=== PATIENT | male | born 1960 | race Two or more races ===

== ENCOUNTER 2020-09-22 10:23 | Inpatient (IN) | payer BC ==
[~2020-09-22] VITALS: Ht 177.8 cm; Wt 81.6 kg
[2020-09-22 10:35] VITALS: BP 127/72
--- NOTE | 2020-09-22 10:40 | NUR ---
ED Nurse Note: Patient was BIBA from urgent care due to dizziness and weakness. Went to urgent care for N&V for 1 week. COVID (-)test today. Per patient he has black stool for one week. Patient presented calm, AAO x4, VSS at this time.
[2020-09-22] MEDS ORDERED: Pantoprazole Inj IV ONE (10:45)
--- NOTE | 2020-09-22 10:45 | NUR ---
ED Nurse Note: patient presente with IV line on left AC 16ga, blood collected sent to lab
--- NOTE | 2020-09-22 11:38 | Emergency Room Report ---
History of Present Illness General Chief Complaint: Nausea, Vomiting, and Diarrhea Source: Patient, EMS Present Illness HPI 60-year-old male PMHx HTN and gastritis BIBA with generalized weakness. Admits to melanotic stools x10 days. Denies nausea, vomiting, hematochezia, hematuria, back pain, abdominal pain, syncope, chest pain, shortness of breath, hematemesis, or other symptoms. Denies history of previous blood transfusion. Denies extensive NSAID or alcohol use use. Patient had initially gone to urgent care for his symptoms and was swabbed for covid which came back negative. EMS stated that patient was initially hypotensive on scene and found to have positive orthostats were positive. Denies recent EGD or colonoscopy. He was given NS 400 cc bolus prior to ED arrival with resolution of hypotension and tachycardia. No LOC witnessed by EMS Patient was retching on arrival to ED. No witnessed hematemesis. The patient's symptoms were gradual onset, severity was moderate, duration since 10 days. Quality: Dark bloody stools Past medical history: Hypertension, Gastritis Past surgical history: Denies Smoking: Denies Alcohol use: Denies Drug use: Denies Review of systems: CONST: No fevers or chills, No night sweats PULMONARY: No productive cough, No shortness of breath CARDIAC: No chest pain, No palpitations GI: ++ vomiting, No diarrhea , ++ melena_negative_BRBPR : No dysuria, No hematuria, No discharge NEURO: No new_focal_weakness_or_numbness, No confusion, No vision changes 14 point Review of Systems is otherwise negative except per HPI Physical Exam: GENERAL: Awake_alert_ nontoxic, no acute distress Spo2 98% on RA -normal EYES: Extraocular muscles are intact. Conjunctivae clear. Lids without swelling. Pale appearing. ENT: External nose and ear normal_in_appearance. Oropharynx clear. Head_atraumatic, Moist_oral_mucosa NECK: No JVD. No meningismus. No thyromegaly. Supple. Trachea midline RESP: Normal respiratory effort. Symmetric rise. No stridor. Clear_to_auscultation_No_rales_No_wheezes CARDIAC: Tachycardic and regular rhytm. No_significant pedal edema. Pulses 2/4 bilateral UE and LE. ABDOMEN: Soft. Nondistended. Nontender_No_rebound_or_guarding. No pulsatile mass. MSK: Normal muscle tone, without rigidity. Extremities without asymmetric deformity or swelling. SKIN: Warm and dry. No visible cyanosis or pallor NEUROLOGIC: Alert, oriented x3. Motor_and_sensation_grossly_intact. No truncal ataxia. Gait_normal Psych: Normal mood and affect, normal judgment and insight - COORDINATION OF CARE Case was discussed with: Patient , Patient's Physician Any labs and imaging that were ordered were interpreted as part of the medical decision making: Medical Decision Making/Plan: Differential diagnosis includes upper GI bleed from bleeding peptic ulcer, bleeding duodenal ulcer, gastritis, esophageal varices, gastric varices, among others. Patient is pale appearing. Tachycardic but with stable BP. No palpable abdominal mass or peritonitis to suggest AAA. Pulses are equal and symmetric in the daryl ateral UE and LE, doubt Aortic dissection. Given the possibility of a bleeding peptic ulcer, Protonix IV was immediately started. Because of Hgb 5.5, the patient will immediately be transfused 2 units of PRBC, and admitted for further care and management. The patient does not require any emergent anticoagulation reversal at this time point, although it was considered. Patient is protecting his airway, no active vomiting, no need for NG tube or intubation at this time. Patient is capitated by his insurance to outside hospital. I spoke with Dr. Reyes who states that patient will be transferred to outside hospital that is contra cted the patient's insurance. The patient has been stabilized to the best of this emergency department's capabilities. Given the patient's medical needs, appropriate facilities for transfer were discussed and the decision has been made to transfer this patient to capitated facility. The receiving facility has the capacity and capabilities to provide care for the patient. I spoke with Dr Reyes who accepted the patient in transfer. The patient has been informed and updated of their current clinical status. The patient has given verbal consent for the transfer. The risks and benefits were explained and the patient verbalizes their understanding. Allergies: Coded Allergies: No Known Allergies (Unverified , 09/22/20) COVID-19 Screening Contact w/high risk pt: No Experienced COVID-19 symptoms?: No COVID-19 Testing performed AUTHORIZATION SPECIALIST: Yes COVID-19 Screening: Negative COVID-19 COVID-19 Testing Source: TODAY NEGATIVE BUFFER COPPER Nursing Documentation-PMH Past Medical History: No History, Except For Hx Hypertension: Yes Hx Gastrointestinal Problems: Yes - GASTRITIS Physical Exam Vital Signs Date Time Temp Pulse Resp B/P (MAP) Pulse Ox O2 Delivery O2 Flow Rate FiO2 09/22/20 10:24 98.1 90 18 109/64 (79) 98 Room Air Sp02 EP Interpretation: reviewed, normal Procedures Critical Care Time Critical Care Time Critical Care Statement Organ systems at risk include: cardiac / circulatory Critical care performed for 45 minutes. Time is exclusive of separately billable procedures. Time includes: direct patient care, continuous monitoring and multiple patient reassessment, coordination of patient care, review of patient's medical records, medical consultation, family consultation regarding treatment decisions and documentation of patient care. Blood transfusion was initiated in the emergency department for severe anemia Medical Decision Making Diagnostic Impression: Primary Impression: GI bleed Additional Impressions: Melena Anemia Symptomatic anemia History of hypertension EKG Diagnostic Results PA Scribe Text 12-lead EKG (interpreted by me) Time: 1038 Indication: Rhythm analysis Tracing visualized and Interpreted by me. Rhythm: Normal sinus rhythm Rate: 98 bpm QTc: 426 Morphology: No_significant_ST_elevations_or_depressions, No STEMI Impression: Normal_sinus_rhythm_without_significant_abnormality. LVH, nonspecific Rhythm Strip Diag. Results Rhythm Strip Time: 13:31 EP Interpretation: yes Rate: 100 Reevaluation Time: 13:32 Last Vital Signs Date Time Temp Pulse Resp B/P (MAP) Pulse Ox O2 Delivery O2 Flow Rate FiO2 09/22/20 10:35 98.1 100 18 127/72 98 Room Air Status: improved Disposition: ADMITTED INPATIENT - TRANSFER TO OUTSIDE HOSPITAL Admit Decision Time: 13:30 Condition: Stable Cari Kovacs D.O. Sep 22, 2020 11:38
[2020-09-22 11:42] LABS: HEMATOCRIT 17.1 % (42.0-52.0); MEAN CORPUSCULAR VOLUME 89 FL (80-99); PLATELET COUNT 278 K/UL (150-450); RED BLOOD COUNT 1.92 M/UL (4.70-6.10); RED CELL DISTRIBUTION WIDTH 15.1 % (11.6-14.8); WHITE BLOOD COUNT 9.5 K/UL (4.8-10.8)
[2020-09-22 11:44] LABS: ANION GAP 7 mmol/L (5-15); BLOOD UREA NITROGEN 35 mg/dL (7-18); CARBON DIOXIDE 27 MMOL/L (21-32); CHLORIDE 110 MMOL/L (98-107); CREATININE 1.2 MG/DL (0.55-1.30); POTASSIUM 3.5 MMOL/L (3.5-5.1); SODIUM 144 MMOL/L (136-145)
[2020-09-22 11:45] LABS: HEMOGLOBIN 5.5 G/DL (14.2-18.0)
[2020-09-22 11:47] LABS: INR 0.9 (0.9-1.1)
[2020-09-22 11:49] LABS: ALANINE AMINOTRANSFERASE 25 U/L (12-78); ALBUMIN 2.4 G/DL (3.4-5.0); ALBUMIN/GLOBULIN RATIO 0.8 (1.0-2.7); ALKALINE PHOSPHATASE 75 U/L (46-116); ASPARTATE AMINO TRANSFERASE 13 U/L (15-37); BILIRUBIN,TOTAL 0.2 MG/DL (0.2-1.0)
[2020-09-22] MEDS ORDERED: AMLODIPINE BESY10 MG ORAL (12:33)
[2020-09-22] MEDS ORDERED: ALLOPURINOL100 M1 ORAL (12:33)
[2020-09-22] MEDS ORDERED: LISINOPRIL5 MG ORAL (12:33)
[2020-09-22] MEDS ORDERED: POTASSIUM CHLO20 ME1 ORAL (12:33)
--- NOTE | 2020-09-22 13:10 | NUR ---
ED Nurse Note: Blood transfusion was started, all VSS at this time, will reassess in 15 min
--- NOTE | 2020-09-22 13:25 | NUR ---
ED Nurse Note: after 15 min as blood transfusion was started, all VSS at this time, no blood transfusion reaction was noted
--- NOTE | 2020-09-22 15:22 | NUR ---
ED Nurse Note: second unit of blood started, all VSS at this time, will closely monitor
[2020-09-22 15:31] LABS: APPEARANCE,URINE CLEAR; BILIRUBIN, URINE NEGATIVE (NEGATIVE); COLOR,URINE PALE YELLOW; GLUCOSE, URINE (UA) NEGATIVE (NEGATIVE); KETONES,URINE NEGATIVE (NEGATIVE); LEUKOCYTE ESTERASE ,URINE NEGATIVE (NEGATIVE); NITRITE,URINE NEGATIVE (NEGATIVE); PH,URINE 6 (4.5-8.0); PROTEIN,URINE 2+ (NEGATIVE); UROBILINOGEN,URINE NORMAL MG/DL (0.0-1.0)
--- NOTE | 2020-09-22 17:30 | NUR ---
ED Nurse Note: second unit of blood was transfused, all VSS at this time, patient stated feel much better
[2020-09-22 18:10] VITALS: BP 136/89
--- NOTE | 2020-09-22 21:12 | NUR ---
ED Nurse Note: another CBC was collected sent to lab
[2020-09-22 21:15] LABS: BASOPHILS % (AUTO) 0.6 % (0.0-2.0); EOSINOPHILS % (AUTO) 0.5 % (0.0-3.0); HEMATOCRIT 24.2 % (42.0-52.0); HEMOGLOBIN 8.4 G/DL (14.2-18.0); LYMPHOCYTES % (AUTO) 22.9 % (20.0-45.0); MEAN CORPUSCULAR VOLUME 86 FL (80-99); MONOCYTES % (AUTO) 4.9 % (1.0-10.0); NEUTROPHILS % (AUTO) 71.2 % (45.0-75.0); PLATELET COUNT 280 K/UL (150-450); RED BLOOD COUNT 2.82 M/UL (4.70-6.10); RED CELL DISTRIBUTION WIDTH 15.3 % (11.6-14.8); WHITE BLOOD COUNT 11.1 K/UL (4.8-10.8)
[2020-09-22 22:55] VITALS: BP 136/90
--- NOTE | 2020-09-22 23:24 | NUR ---
HAND-OFF: Report given to MATHIEU Goyal .
--- NOTE | 2020-09-22 23:26 | NUR ---
ED Nurse Note: Recieved pt awake , verbal and A&Ox4 . pt vitals are stable; bp 134/98 hr 78 O2 sat 98 RR 17. pt has no sob, chills and fever. pt stated; he do not feel Dizziness. we will keep monitoring the pt.
[2020-09-23] VITALS (13 sets, daily range): BP systolic 115–145; BP diastolic 74–93
--- NOTE | 2020-09-23 02:00 | NUR ---
ED Nurse Note: pt is sleeping comfortably. vitals are stable. we will keep monitoring the pt.
[2020-09-23 05:15] LABS: HEMATOCRIT 21.1 % (42.0-52.0); MEAN CORPUSCULAR VOLUME 89 FL (80-99); PLATELET COUNT 236 K/UL (150-450); RED BLOOD COUNT 2.38 M/UL (4.70-6.10); RED CELL DISTRIBUTION WIDTH 14.2 % (11.6-14.8); WHITE BLOOD COUNT 7.9 K/UL (4.8-10.8)
--- NOTE | 2020-09-23 05:15 | NUR ---
ED Nurse Note: blood drawn and sent to the lab. pt has no dizzness, fever, chill, and sob. His vitals are stable. we will keep monitoring the pt.
[2020-09-23 05:42] LABS: ANION GAP 4 mmol/L (5-15); BLOOD UREA NITROGEN 32 mg/dL (7-18); CALCIUM 7.9 MG/DL (8.5-10.1); CARBON DIOXIDE 28 MMOL/L (21-32); CHLORIDE 113 MMOL/L (98-107); CREATININE 1.1 MG/DL (0.55-1.30); POTASSIUM 3.4 MMOL/L (3.5-5.1); SODIUM 145 MMOL/L (136-145)
[2020-09-23 05:47] LABS: ALANINE AMINOTRANSFERASE 22 U/L (12-78); ALBUMIN 2.3 G/DL (3.4-5.0); ALBUMIN/GLOBULIN RATIO 0.8 (1.0-2.7); ALKALINE PHOSPHATASE 67 U/L (46-116); ASPARTATE AMINO TRANSFERASE 17 U/L (15-37); BILIRUBIN,TOTAL 0.4 MG/DL (0.2-1.0)
--- NOTE | 2020-09-23 07:00 | NUR ---
ED Nurse Note: Pt in bed asleep on elpidio bed. pt VSS (please see vitals intervention). Pt has no pain at this time, will transfer to floor after report at 0730
--- NOTE | 2020-09-23 08:08 | NUR ---
ED Nurse Note: telephone report given to shivani willis for continuity of care.
--- NOTE | 2020-09-23 08:20 | NUR ---
TRANSFER TO FLOOR: Patient transferred to Tele as ordered, per ERMD. Report given to MATHIEU De Jesus. Belongings given to patient.
--- NOTE | 2020-09-23 09:05 | NUR ---
NURSE NOTES: Received pt from [employer] BODS DEVELOPERMATHIEU JUDD all admission assessments and instructions done and pt verbally confirmed to understand all. pt is awake and alert, pt is in RA, no SOB or acute respiratory distress noted. pt is on continues heart monitoring, pt has intact iv access LAC 16G SL. ELIESER Grullon is aware about admission and HB 7 K 3.4 and other lab results and V/S, PA will F/U. SKIN IS INTACT.All belongings are with pt, pt has 60$ AND REFUSES TO KEEP IN SAFE. All needs attended, bed is locked and is in the lowest position, call light within easy reach. will continue to monitor.
--- NOTE | 2020-09-23 10:16 | NUR ---
NURSE NOTES: ELIESER Grullon visited pt and is aware about admission, PA will F/U.
--- NOTE | 2020-09-23 10:54 | NUR ---
NURSE NOTES: pt signed consent for EGD.
--- NOTE | 2020-09-23 11:10 | NUR ---
NURSE NOTES: blood transfusion started for pt with BP 130/82 T 98.5 RR 20 HR 98. Will continue to monitor.
[2020-09-23] MEDS ORDERED: Midazolam 2mg/2ml Inj ONE (11:40)
--- NOTE | 2020-09-23 11:46 | HX and Phyl Repo 2 Sig ---
DATE OF ADMISSION: 09/22/2020 CONSULTING PHYSICIAN: Ryan Flores ATTENDING PHYSICIAN: Domingo Valenzuela MD. REASON FOR ADMISSION: Nausea, vomiting, diarrhea. HISTORY OF PRESENT ILLNESS: This is a 60-year-old male with past medical history of hypertension, gastritis, who presented to the ER with generalized weakness. He reported black tarry stools x10 days. He denies nausea, vomiting, hematochezia, hematuria, back pain, abdominal pain, syncope, chest pain, shortness of breath, hematemesis, or other symptoms. The patient was found to be retching in the ER yesterday. He denies extensive NSAID or alcohol use. He denies recent EGD or colonoscopy. The patient reports he started feeling pain in the throat, which radiated down to his abdomen diffusely a few days ago. Initial laboratory studies showed hemoglobin of 5.5, hematocrit 7.1, BUN 35, low total protein, low albumin. The patient was negative for COVID-19. The patient was given Protonix IV, 2 units of PRBC and admitted for further care and management. PAST MEDICAL HISTORY: Enlarged prostate per patient, hypertension, gastritis. MEDICATIONS: Allopurinol, amlodipine, lisinopril, potassium chloride. ALLERGIES: No known allergies. FAMILY HISTORY: Noncontributory. PERSONAL/SOCIAL HISTORY: Denies smoking, alcohol use or drug use. REVIEW OF SYSTEMS: HEENT: Denies any headaches, blurry vision, hoarseness, dysphagia, hearing loss, tinnitus, loss of balance. CHEST AND LUNGS: Denies any chest discomfort or hemoptysis. CARDIOVASCULAR: Denies any exertional chest pain, pressure, palpitations, orthopnea, PND, or ankle swelling. GASTROINTESTINAL: Currently denies vomiting, abdominal pain, or oily or foul-smelling stools. No constipation or hematochezia. GENITOURINARY: Reports dysuria. Denies any frequency, urgency, hematuria, flank pain, kidney stone or kidney disease. NEUROLOGICAL: Denies seizure activity, dizziness, or fainting episodes. PHYSICAL EXAMINATION: VITAL SIGNS: Blood pressure 130/83, heart rate 94, respiratory rate 20, weight 81 kg, height 177 cm. HEENT: Head exam reveals that the head is normocephalic, atraumatic without deformity or unusual swelling. Pupils are PERRLA. There is no nystagmus or lid lag. CHEST AND LUNGS: Reveals clear, normal, symmetrical breath sounds with no adventitious sounds. Expansion is normal. CARDIOVASCULAR: Reveals normal S1, S2 without murmurs, rubs, or clicks. ABDOMEN: Soft with no tenderness. RECTAL: Deferred. MUSCULOSKELETAL: There is no tenderness to palpation, range of motion normal. NEUROLOGICAL: Cranial nerves II through XII are intact. LABORATORY DATA: Laboratory testing shows hemoglobin 7.0, hematocrit 21.1 after 2 units of PRBC. Chemistries show potassium 3.4, chloride 113, BUN 32, calcium 7.9, total protein 5.2, albumin 2.3. Coagulation panel shows aPTT of 17. Urinalysis shows 2+ protein. IMPRESSION AND PLAN: 1. Melena. -GI consultation appreciated. 2. Anemia. -status post 2 units of PRBC. -hemoglobin was 5.5, now 7.0. -transfusion p.r.n., keep hemoglobin above 7. -anemia workup per GI. 3. Hypertension. -we will continue home antihypertensive medications. 4. Hypokalemia. -we will continue home medication including K-Dur. We will continue other home medications. We will follow carefully. The care for this patient was discussed with my supervising physician. Time spent for this case was approximately 31 minutes. Domingo Valenzuela M.D. ELIESER De La Torre DR: JEMIMA/JUAN JOB#: [id number] CC:
[2020-09-23] MEDS ORDERED: fentaNYL 100 mcg/2 mL IV ONE (11:50)
[2020-09-23] MEDS ORDERED: NS Irrig 1000ml ONE (11:50)
--- NOTE | 2020-09-23 11:51 | NUR ---
NURSE NOTES: after 15min pt is stable, no reaction noted. pt left unit now to gi lab for EGD.
--- NOTE | 2020-09-23 11:53 | Anethesia Preoperative Eval ---
Anesthesia Pre-op PMH/ROS General Date of Evaluation: Sep 23, 2020 Time of Evaluation: 11:49 Anesthesiologist: Lalo ASA Score: ASA 3 Mallampati Score Class I : Soft palate, uvula, fauces, pillars visible Class II: Soft palate, uvula, fauces visible Class III: Soft palate, base of uvula visible Class IV: Only hard plate visible Mallampati Classification: Class II Surgeon: Kateryna Diagnosis: GI bleed Surgical Procedure: EGD Anesthesia History: none Family History: no anesthesia problems Allergies: Coded Allergies: No Known Allergies (Unverified , 09/22/20) Medications: see eMAR Patient NPO?: Yes Past Medical History Cardiovascular: Reports: HTN; Denies: CAD, PA, valve dz, arrhythmia, other Pulmonary: Denies: asthma, COPD, NATASHA, other Gastrointestinal/Genitourinary: Reports: GERD; Denies: CRI, ESRD, other Neurologic/Psychiatric: Reports: depression/anxiety; Denies: dementia, CVA, TIA, other Endocrine: Denies: DM, hypothyroidism, steroids, other HEENT: Denies: cataract (L), cataract (R), glaucoma, MESA GRANDE (L), MESA GRANDE (R), other Hematology/Immune: Reports: anemia - acute vs chronic ; Denies: DVT, bleeding disorder, other Musculoskeletal/Integumentary: Denies: OA, RA, DJD, DDD, edema, other PMH Narrative: as above, admitted for weakness black stool for a couple days abdominal pain PSxH Narrative: see H&P Anesthesia Pre-op Phys. Exam Physician Exam Last Vital Signs Date Time Temp Pulse Resp B/P (MAP) Pulse Ox O2 Delivery O2 Flow Rate FiO2 09/23/20 09:17 100 09/23/20 08:30 99.7 20 130/83 (99) 96 09/23/20 08:20 Room Air Constitutional: NAD Neurologic: CN 2-12 intact Cardiovascular: RRR Respiratory: CTA Gastrointestinal: other - slightly tender Airway Exam Mallampati Score: Class II MO: limited Neck: stiff ROM: limited Teeth: intact Dentures: no upper, no lower Anesthesia Pre-op A/P Labs Hematology Test 09/22/20 21:09 09/23/20 05:01 White Blood Count 11.1 K/UL (4.8-10.8) H 7.9 K/UL (4.8-10.8) Red Blood Count 2.82 M/UL (4.70-6.10) L 2.38 M/UL (4.70-6.10) L Hemoglobin 8.4 G/DL (14.2-18.0) #L 7.0 G/DL (14.2-18.0) L Hematocrit 24.2 % (42.0-52.0) #L 21.1 % (42.0-52.0) L Mean Corpuscular Volume 86 FL (80-99) 89 FL (80-99) Mean Corpuscular Hemoglobin 29.7 PG (27.0-31.0) 29.5 PG (27.0-31.0) Mean Corpuscular Hemoglobin Concent 34.7 G/DL (32.0-36.0) 33.2 G/DL (32.0-36.0) Red Cell Distribution Width 15.3 % (11.6-14.8) H 14.2 % (11.6-14.8) Platelet Count 280 K/UL (150-450) 236 K/UL (150-450) Mean Platelet Volume 6.0 FL (6.5-10.1) L 5.9 FL (6.5-10.1) L Neutrophils (%) (Auto) 71.2 % (45.0-75.0) % (45.0-75.0) Lymphocytes (%) (Auto) 22.9 % (20.0-45.0) % (20.0-45.0) Monocytes (%) (Auto) 4.9 % (1.0-10.0) % (1.0-10.0) Eosinophils (%) (Auto) 0.5 % (0.0-3.0) % (0.0-3.0) Basophils (%) (Auto) 0.6 % (0.0-2.0) % (0.0-2.0) Chemistry Test 09/23/20 05:01 Sodium Level 145 MMOL/L (136-145) Potassium Level 3.4 MMOL/L (3.5-5.1) L Chloride Level 113 MMOL/L (98-107) H Carbon Dioxide Level 28 MMOL/L (21-32) Anion Gap 4 mmol/L (5-15) L Blood Urea Nitrogen 32 mg/dL (7-18) H Creatinine 1.1 MG/DL (0.55-1.30) Estimat Glomerular Filtration Rate > 60 mL/min (>60) Glucose Level 115 MG/DL (74-106) H Calcium Level 7.9 MG/DL (8.5-10.1) L Total Bilirubin 0.4 MG/DL (0.2-1.0) Aspartate Amino Transf (AST/SGOT) 17 U/L (15-37) Alanine Aminotransferase (ALT/SGPT) 22 U/L (12-78) Alkaline Phosphatase 67 U/L (46-116) Total Protein 5.2 G/DL (6.4-8.2) L Albumin 2.3 G/DL (3.4-5.0) L Globulin 2.9 g/dL Albumin/Globulin Ratio 0.8 (1.0-2.7) L Studies Pre-op Studies: EKG - SR Risk Assessment & Plan Assessment: ASA 3 E Plan: MAC Status Change Before Surgery: No Pre-Antibiotics Drug: none Yehdua May MD Sep 23, 2020 11:53
[2020-09-23] MEDS ORDERED: fentaNYL 100 mcg/2 mL IV PRN (12:00)
--- NOTE | 2020-09-23 12:05 | Pre-Procedure Note/Attestation ---
Pre-Procedure Note/Attestation Complete Prior to Procedure Planned Procedure: not applicable Procedure Narrative: egd Indications for Procedure Pre-Operative Diagnosis: gib Attestation I attest that I discussed the nature of the procedure; its benefits; risks and complications; and alternatives (and the risks and benefits of such alternatives), prior to the procedure, with the patient (or the patient's legal cordage sales representative). I attest that, if there was a reasonable possibility of needing a blood transfusion, the patient (or the patient's legal cordage sales representative) was given the [facility] standardized written summary, pursuant to the Vaibhav Parth Blood Safety Act ([place] Health and Safety Code # 1645, as amended). I attest that I re-evaluated the patient just prior to the surgery and that there has been no change in the patient's H&P, except as documented below: Suresh Avendaño MD Sep 23, 2020 12:05
--- NOTE | 2020-09-23 12:29 | Immediate Post-Op Evaluation ---
Immediate Post-Op Evalulation Immediate Post-Op Evalulation Procedure: EGD with Bx Date of Evaluation: Sep 23, 2020 Time of Evaluation: 12:28 IV Fluids: 150 Blood Products: none Estimated Blood Loss: none Urinary Output: none Blood Pressure Systolic: 110 Blood Pressure Diastolic: 62 Pulse Rate: 85 Respiratory Rate: 20 O2 Sat by Pulse Oximetry: 99 Temperature (Fahrenheit): 97.6 Pain Score (1-10): 2 Nausea: No Vomiting: No Complications none Patient Status: reacts, patent, none Hydration Status: adequate Yehuda May MD Sep 23, 2020 12:29
--- NOTE | 2020-09-23 12:44 | 48 Hour Post Anesthesia Eval ---
Post Anesthesia Evaluation Procedure: EGD with Bx Date of Evaluation: Sep 23, 2020 Time of Evaluation: 12:42 Blood Pressure Systolic: 116 0: 72 Pulse Rate: 86 Respiratory Rate: 20 Temperature (Fahrenheit): 97.6 O2 Sat by Pulse Oximetry: 98 Airway: patent Nausea: No Vomiting: No Pain Intensity: 2 Hydration Status: adequate Cardiopulmonary Status: stable Mental Status/LOC: patient returned to baseline Follow-up Care/Observations: n/a Post-Anesthesia Complications: none Follow-up care needed: N/A Yehuda May MD Sep 23, 2020 12:44
--- NOTE | 2020-09-23 13:17 | NUR ---
NURSE NOTES: pt came back from gi lab at 1300from MATHIEU CARPENTER, pt is awake and alert, V/S stable, no pain at his moment. per MATHIEU Carpenter they didn't run blood is gi lab so blood transfusion started again. pt is eating lunch now. will continue to monitor.
[2020-09-23] MEDS: Sucralfate 1gm tab ORAL SCH ×3 (13:23→21:00)
--- NOTE | 2020-09-23 15:00 | NUR ---
NURSE NOTES: blood transfusion finished and pt tolerated well, no reaction noted. BP 153/100 RR 20 T 99.3 HR 90. Bag returned to blood bank. will continue to monitor.
--- NOTE | 2020-09-23 16:09 | NUR ---
INSURANCE FAXED CLINICALS TO [employer] CM: Princess #[phone] fax#[phone]
--- NOTE | 2020-09-23 19:00 | Procedure Note ---
DATE OF PROCEDURE: 09/22/2020 SURGEON: Suresh Avendaño MD. PROCEDURE: Upper endoscopy with biopsy and hemostasis. ANESTHESIA: Per Dr. May. INSTRUMENT: Olympus adult flexible upper endoscope. REASON FOR PROCEDURE: The procedure, risks, benefits, and possible consequences, including hemorrhage, aspiration, perforation and infection, and alternative treatments, were explained to the patient/legal guardian by Dr. Suresh Avendaño and the patient/legal guardian understood and accepted these risks. INDICATION: GI bleeding. PROCEDURE IN DETAIL: After informed consent was obtained and patient was adequately sedated, Olympus upper endoscope was advanced from mouth into the second portion of the duodenum and retroflexion was performed in the stomach. Patient has evidence of duodenal ulcer at the junction of duodenal bulb and second portion of the duodenum. No visible vessel, no adherent clot, but there was some clot in the duodenum. We used epinephrine 1:10,000 dilution, injected 3 mL around the ulcer. We examined the ulcer again one more time after flushing it. There was again no obvious visible vessel, no adherent clot. Already hemostasis was performed. On the way back, we biopsied the antrum of the stomach for evaluation for H. pylori infection. SUMMARY OF FINDINGS: 1. Gastritis, status post biopsy. 2. Duodenal ulcerations, status post hemostasis with using epinephrine. RECOMMENDATIONS: 1. Follow pathology and treat for H. pylori if positive. 2. Start clear liquid diet and advance as tolerated. 3. Continue on Protonix twice a day and Carafate. I want to thank Dr. Valenzuela for this kind referral. Suresh Avendaño M.D. DR: JONO JOB#: [id number] CC: Domingo Valenzuela M.D.; Fax#: [phone]
--- NOTE | 2020-09-23 19:25 | NUR ---
NURSE HAND-OFF REPORT: Important Events on Shift: Patient Status: Diet: Pending Orders: Pending Results/Labs: Pending MD notification: Latest Vital Signs: Temperature 100.0 , Pulse 100 , B/P 136 /86 , Respiratory Rate 20 , O2 SAT 98 , Room Air, O2 Flow Rate 3 . Vital Sign Comment: EKG Rhythm: Sinus Rhythm Rhythm change?: N MD Notified?: - MD Response: Latest Avitia Fall Score: 20 Fall Risk: Low Risk Safety Measures: Call light Within Reach, Bed Alarm Zone 1, Side Rails Side Rails x3, Bed position Low and Locked. Fall Precautions: Patient Fall Education Report given to . Pt is aleeping and stable, no stress noted. Endorsed plan of care, Endorsed to monitor bleeding.
--- NOTE | 2020-09-23 19:26 | NUR ---
NURSE NOTES: Received report from MATHIEU De Jesus; pt AOX4, noted asleep in bed, on room air, in no acute distress; with IV site on R forearm 22 gauge s/l, intact and patent, call light within reach, bed locked and in low position, side rails x 2; will continue to monitor.
[2020-09-24] VITALS: BP 128/83
[2020-09-24 04:00] VITALS: BP 124/84
--- NOTE | 2020-09-24 06:45 | General Progress Note ---
Subjective ROS Limited/Unobtainable: Yes Allergies: Coded Allergies: No Known Allergies (Unverified , 09/22/20) Objective Last 24 Hour Vital Signs Date Time Temp Pulse Resp B/P (MAP) Pulse Ox O2 Delivery O2 Flow Rate FiO2 09/24/20 04:00 90 09/24/20 04:00 98.9 90 18 124/84 (97) 99 09/24/20 00:00 98.1 92 18 128/83 (98) 96 09/24/20 00:00 80 09/23/20 21:00 Room Air 09/23/20 20:00 98.4 94 18 124/91 (102) 100 09/23/20 18:48 100.0 09/23/20 17:25 100 09/23/20 16:00 100.4 81 20 136/86 (103) 98 09/23/20 13:06 100 09/23/20 13:00 98.3 95 20 141/93 (109) 95 09/23/20 12:50 97.8 92 22 126/85 97 Room Air 09/23/20 12:44 86 20 98 09/23/20 12:35 89 20 123/79 100 Nasal Cannula 3 09/23/20 12:30 91 13 117/82 100 Nasal Cannula 3 09/23/20 12:29 85 20 99 09/23/20 12:23 98.1 84 15 133/92 100 Nasal Cannula 3 09/23/20 12:00 98.5 98 18 115/84 (94) 97 09/23/20 09:17 100 09/23/20 09:00 Room Air 09/23/20 08:30 99.7 94 20 130/83 (99) 96 09/23/20 08:20 98.8 99 18 125/89 100 Room Air 09/23/20 07:00 97.8 95 13 132/74 100 Room Air Intake and Output 09/23/20 09/24/20 19:00 07:00 Intake Total 590 ml 200 ml Output Total 300 ml Balance 290 ml 200 ml Intake Oral 240 ml 200 ml IV Total 250 ml Blood Product 100 ml Output Urine Total 300 ml # Voids 3 Height (Feet): 5 Height (Inches): 10.00 Weight (Pounds): 180 General Appearance: no apparent distress EENT: normal ENT inspection Neck: supple Cardiovascular: normal rate Respiratory/Chest: decreased breath sounds Abdomen: normal bowel sounds, non tender, soft Extremities: non-tender Assessment/Plan Problem List: (1) GI bleed ICD Codes: K92.2 - Gastrointestinal hemorrhage, unspecified SNOMED: 68795124 (2) Anemia ICD Codes: D64.9 - Anemia, unspecified SNOMED: 758323635 (3) Melena ICD Codes: K92.1 - Melena SNOMED: 6419438 (4) History of hypertension ICD Codes: Z86.79 - Personal history of other diseases of the circulatory system SNOMED: 648987939 Assessment/Plan: s/p EGD: SUMMARY OF FINDINGS: 1. Gastritis, status post biopsy. 2. Duodenal ulcerations, status post hemostasis with using epinephrine. RECOMMENDATIONS: 1. Follow pathology and treat for H. pylori if positive. 2. Start clear liquid diet and advance as tolerated. 3. Continue on Protonix twice a day and Carafate. needs out patient colonoscopy Suresh Avendaño MD Sep 24, 2020 06:45
[2020-09-24 07:03] LABS: BASOPHILS % (AUTO) 0.7 % (0.0-2.0); EOSINOPHILS % (AUTO) 0.8 % (0.0-3.0); HEMATOCRIT 25.1 % (42.0-52.0); HEMOGLOBIN 8.5 G/DL (14.2-18.0); LYMPHOCYTES % (AUTO) 19.6 % (20.0-45.0); MEAN CORPUSCULAR VOLUME 86 FL (80-99); MONOCYTES % (AUTO) 4.1 % (1.0-10.0); NEUTROPHILS % (AUTO) 74.8 % (45.0-75.0); PLATELET COUNT 242 K/UL (150-450); RED BLOOD COUNT 2.92 M/UL (4.70-6.10); RED CELL DISTRIBUTION WIDTH 14.8 % (11.6-14.8); WHITE BLOOD COUNT 7.5 K/UL (4.8-10.8)
--- NOTE | 2020-09-24 07:11 | NUR ---
NURSE NOTES: Pt recieved from [facility]. Pt in bed sleeping, breakfast at bedside. Bed low and locked. call light within reach. No distress noted. Whiteboard updated.
--- NOTE | 2020-09-24 07:15 | NUR ---
NURSE HAND-OFF REPORT: Important Events on Shift: n/a Patient Status: AOX4, stable Diet: Clear liquid diet Pending Orders: N Pending Results/Labs: biopsy results from EGD Pending MD notification: N Latest Vital Signs: Temperature 98.9 , Pulse 90 , B/P 124 /84 , Respiratory Rate 18 , O2 SAT 99 , Room Air, O2 Flow Rate 3 . Vital Sign Comment: stable EKG Rhythm: Sinus Rhythm Rhythm change?: N MD Notified?: - MD Response: Latest Avitia Fall Score: 20 Fall Risk: Low Risk Safety Measures: Call light Within Reach, Bed Alarm Zone 1, Side Rails Side Rails x2, Bed position Low and Locked. Fall Precautions: Patient Fall Education Report given to MATHIEU Jhaveri.
[2020-09-24 07:58] LABS: ALANINE AMINOTRANSFERASE 25 U/L (12-78); ALBUMIN 2.4 G/DL (3.4-5.0); ALBUMIN/GLOBULIN RATIO 0.8 (1.0-2.7); ALKALINE PHOSPHATASE 74 U/L (46-116); ANION GAP 5 mmol/L (5-15); ASPARTATE AMINO TRANSFERASE 21 U/L (15-37); BILIRUBIN,TOTAL 0.6 MG/DL (0.2-1.0); BLOOD UREA NITROGEN 19 mg/dL (7-18); CARBON DIOXIDE 28 MMOL/L (21-32); CHLORIDE 111 MMOL/L (98-107); CHOLESTEROL 170 MG/DL (< 200); HDL CHOLESTEROL 37 MG/DL (40-60); POTASSIUM 3.1 MMOL/L (3.5-5.1); SODIUM 144 MMOL/L (136-145); TRIGLYCERIDES 124 MG/DL (30-150)
[2020-09-24 08:00] VITALS: BP 148/104
[2020-09-24] MEDS ORDERED: Allopurinol 100mg Tab ORAL SCH (09:00)
[2020-09-24] MEDS ORDERED: Lisinopril 2.5mg tab ORAL SCH (09:00)
[2020-09-24] MEDS: Sucralfate 1gm tab ORAL SCH (09:12)
--- NOTE | 2020-09-24 09:59 | NUR ---
CASE MANAGEMENT:REVIEW 60 YR OLD MALE FROM URGENT CARE CC DIZZINESS AND WEAKNESS. MELENA SI: UGIB.ANEMIA 98.1 90 18 109/64 98% ON RA H/H-5.5/17.1 IS: IV ZOFRAN IV PEPCID 1L NS BOLUS TRANSFUSE 2 UNITS PRBC : TO TELEMETRY PLAN:EGD 09/23/20 SI: S/P EGD(+) GASTRITIS. DUODENAL ULCERATIONS H/H-7.0/21.1 IS: TRANSFUSE 1 UNIT PRBC'S : TELEMETRY STATUS 09/24/20 SI: UGIB. ANEMIA 98.3 104 18 148/104 97% ON RA H/H-8.5/25.1 K-3.1 PSA+4.83 IS: K-DUR PO QD LISINOPRIL PO QD NORVASC PO QD PROTONIX PO Q12 CARAFATE PO QID : TELEMETRY DCP: FROM HOME
--- NOTE | 2020-09-24 10:21 | Pulmonology Progress Note ---
Subjective ROS Limited/Unobtainable: Yes Interval Events: S/p EGD'; DU noted Constitutional: Reports: no symptoms HEENT: Repors: no symptoms Respiratory: Reports: no symptoms Cardiovascular: Reports: no symptoms Gastrointestinal/Abdominal: Reports: no symptoms Allergies: Coded Allergies: No Known Allergies (Unverified , 09/22/20) Objective Last 24 Hour Vital Signs Date Time Temp Pulse Resp B/P (MAP) Pulse Ox O2 Delivery O2 Flow Rate FiO2 09/24/20 09:12 104 148/104 09/24/20 09:11 148/104 09/24/20 09:00 Room Air 09/24/20 08:00 98.3 104 18 148/104 (119) 97 09/24/20 08:00 80 09/24/20 04:00 90 09/24/20 04:00 98.9 90 18 124/84 (97) 99 09/24/20 00:00 98.1 92 18 128/83 (98) 96 09/24/20 00:00 80 09/23/20 21:00 Room Air 09/23/20 20:00 98.4 94 18 124/91 (102) 100 09/23/20 18:48 100.0 09/23/20 17:25 100 09/23/20 16:00 100.4 81 20 136/86 (103) 98 09/23/20 13:06 100 09/23/20 13:00 98.3 95 20 141/93 (109) 95 09/23/20 12:50 97.8 92 22 126/85 97 Room Air 09/23/20 12:44 86 20 98 09/23/20 12:35 89 20 123/79 100 Nasal Cannula 3 09/23/20 12:30 91 13 117/82 100 Nasal Cannula 3 09/23/20 12:29 85 20 99 09/23/20 12:23 98.1 84 15 133/92 100 Nasal Cannula 3 09/23/20 12:00 98.5 98 18 115/84 (94) 97 Intake and Output 09/23/20 09/24/20 19:00 07:00 Intake Total 590 ml 200 ml Output Total 300 ml Balance 290 ml 200 ml Intake Oral 240 ml 200 ml IV Total 250 ml Blood Product 100 ml Output Urine Total 300 ml # Voids 3 General Appearance: no acute distress HEENT: normocephalic Respiratory: chest wall non-tender Cardiovascular: normal peripheral pulses Abdomen: normal bowel sounds Microbiology Date/Time Source Procedure Growth Status 09/22/20 11:12 Nasopharynx SARS-CoV-2 RdRp Gene Assay - Final Complete Laboratory Tests 09/24/20 06:45: White Blood Count 7.5, Red Blood Count 2.92L, Hemoglobin 8.5L, Hematocrit 25.1L, Mean Corpuscular Volume 86, Mean Corpuscular Hemoglobin 29.0, Mean Corpuscular Hemoglobin Concent 33.7, Red Cell Distribution Width 14.8, Platelet Count 242, Mean Platelet Volume 6.3L, Neutrophils (%) (Auto) 74.8, Lymphocytes (%) (Auto) 19.6L, Monocytes (%) (Auto) 4.1, Eosinophils (%) (Auto) 0.8, Basophils (%) (Auto) 0.7, Sodium Level 144, Potassium Level 3.1L, Chloride Level 111H, Carbon Dioxide Level 28, Anion Gap 5, Blood Urea Nitrogen 19H, Creatinine 1.0, Estimat Glomerular Filtration Rate > 60, Glucose Level 107H, Calcium Level 8.0L, Magnesi um Level 1.8, Total Bilirubin 0.6, Aspartate Amino Transf (AST/SGOT) 21, Alanine Aminotransferase (ALT/SGPT) 25, Alkaline Phosphatase 74, Pro-B-Type Natriuretic Peptide 55, Total Protein 5.6L, Albumin 2.4L, Globulin 3.2, Albumin/Globulin Ratio 0.8L, Triglycerides Level 124, Cholesterol Level 170, LDL Cholesterol 108H , HDL Cholesterol 37L, Cholesterol/HDL Ratio 4.6H, Prostate Specific Antigen 4.83H, Thyroid Stimulating Hormone (TSH) 0.983, Helicobacter pylori IgG Antibody [Pending] Current Medications Medications (Trade) Dose Ordered Sig/Artemio Route PRN Reason Start Time Stop Time Status Last Admin Dose Admin Acetaminophen (Tylenol) 650 mg Q6H PRN ORAL fever 09/23/20 16:30 10/23/20 16:29 09/23/20 18:18 Acetaminophen (Tylenol) 650 mg Q6H PRN ORAL pain 09/23/20 16:30 10/23/20 16:29 Allopurinol (Zyloprim) 100 mg DAILY ORAL 09/24/20 09:00 10/24/20 08:59 09/24/20 09:12 Amlodipine Besylate (Norvasc) 10 mg DAILY ORAL 09/24/20 09:00 10/24/20 08:59 09/24/20 09:12 Dextrose (Dextrose 50%) 25 ml Q30M PRN IV Hypoglycemia 09/23/20 10:45 12/22/20 10:44 Dextrose (Dextrose 50%) 50 ml Q30M PRN IV Hypoglycemia 09/23/20 10:45 12/22/20 10:44 Lisinopril (ZestriL) 5 mg DAILY ORAL 09/24/20 09:00 10/24/20 08:59 09/24/20 09:11 Pantoprazole (Protonix) 40 mg EVERY 12 HOURS ORAL 09/23/20 21:00 10/23/20 20:59 09/24/20 09:12 Potassium Chloride (K-Dur) 20 meq DAILY ORAL 09/24/20 09:00 12/23/20 08:59 09/24/20 09:12 Sucralfate (Carafate) 1 gm FOUR TIMES A DAY ORAL 09/23/20 13:00 12/22/20 12:59 09/24/20 09:12 Assessment/Plan Assessment/Plan IMPRESSION AND PLAN: 1. Melena. -GI consultation appreciated. - S/p EGD; DU noted 2. Anemia. -status post 2 units of PRBC. -hemoglobin was 5.5, now 7.0.now >8 3. Hypertension. - will continue home antihypertensive medications. 4. Hypokalemia. -Replaced Dc home Advance diet outpt followup for H pylori results Added Protonix and carafate Domingo Valenzuela MD Sep 24, 2020 10:21
[2020-09-24] MEDS ORDERED: LISINOPRIL5 MG ORAL (10:25)
[2020-09-24] MEDS ORDERED: SUCRALFATE1 GM ORAL (10:25)
[2020-09-24] MEDS ORDERED: AMLODIPINE BESY10 MG ORAL (10:25)
[2020-09-24] MEDS ORDERED: POTASSIUM CHLO20 ME1 ORAL (10:25)
[2020-09-24] MEDS ORDERED: ALLOPURINOL100 M1 ORAL (10:25)
[2020-09-24] MEDS ORDERED: PANTOPRAZOLE SO40 MG ORAL (10:25)
[2020-09-24 12:00] VITALS: BP 154/95
--- NOTE | 2020-09-24 13:06 | NUR ---
NURSE NOTES: Pt discharged home. Tele box removed. IV removed. Wrist band cut. Pt picked up by son.
--- NOTE | 2020-09-24 19:56 | Discharge Summary ---
Discharge Summary Discharge Summary _ Date of admission: 09/22/2020 Date of discharge: 09/24/[address] Valenzuela History of Present Illness and Brief Hospital Course Mr. Vazquez is a 60-year-old male with past medical history of hypertension, gastritis, who presented to the ER with black tarry stools for 10 days associat ed with generalized weakness. He denied nausea, vomiting, hematochezia, hematuria, back pain, abdominal pain, syncope, chest pain, shortness of breath, hematemesis, or other symptoms. He denied extensive NSAID or alcohol use. He denied recent EGD or colonoscopy. Patient described his pain being located in his throat which radiated down to his abdomen diffusely. Initial laboratory studies in the ER showed markedly low hemoglobin and hematocrit with mildly elevated BUN. Patient was negative for COVID-19. Patient was given Protonix IV, 2 units of PRBC and was admitted for further care and management. To evaluate patient's GI bleeding Olympus adult flexible upper endoscope was used for upper endoscopy with biopsy and hemostasis. The procedure, risks, popeye efits, and possible consequences were explained to the patient and the patient accepted these risks. Patient had evidence of duodenal ulcer at the junction of duodenal bulb and second portion of the duodenum. Epinephrine 1: 10,000 dilution was injected 3 mL around the ulcer. No obvious visible vessel was observed. The antrum of the stomach was biopsied for evaluation for H. pylori infection. After EGD, patient began clear liquid diet and was instructed to advance as tolerated. Protonix and Carafate was continued. The pathology report will be followed up and patient will be treated for H. pylori if positive. With the pathology report pending, patient was medically stable for discharge. Patient agreed to be discharged home and follow-up with GI MD once pathology report is available. Patient also needs outpatient colonoscopy. Patient also had a history of hypertension and his home antihypertensive medications were continued during his admission. Consultants: Gastrointestinal Dr. Avendaño Discharge Condition Medically stable for discharge, with improved H&H Discharge Activity As tolerated Discharge Diet Clear liquid diet, advance as tolerated Final diagnoses Melena Gastritis Duodenal ulcer GI bleeding Anemia Hx of hypertension Hypokalemia I have been assigned to dictate discharge summary for this account. I was not involved in the patient's management Antoine Grullon Sep 24, 2020 19:56
== END 2020-09-24 13:00 | disposition home or self-care (01) | DRG 379 ==
LOC: EDBD 10:23 → EMR 11:43 → 2E 18:22 → EDBEDREQ 09-23 05:11 → 2E 09-23 07:10
PROC: 3E0G8GC Introduction of Other Therapeutic Substance into Upper GI, Via Natural or Artificial Opening Endoscopic (ICD-10-PCS; principal; 2020-09-22)
PROC: 0DD78ZX Extraction of Stomach, Pylorus, Via Natural or Artificial Opening Endoscopic, Diagnostic (ICD-10-PCS; principal; 2020-09-22)
DX: K26.4 Chronic or unspecified duodenal ulcer with hemorrhage (principal); I10 Essential (primary) hypertension; D64.9 Anemia, unspecified; K29.70 Gastritis, unspecified, without bleeding; E87.6 Hypokalemia
CPT/HCPCS: 36415; 80053; 80061; 81003; 83690; 83735; 83880; 84153; 84443; 84484; 85007; 85025; 85610; 85730; 86677; 86850; 86900; 86901; 86920; 93005; 94003; 94150; 96361; 96374; 96375; 99291; J0171; J2250; J2405; J7030; J8499; U0002